=== PATIENT | female | born 1960 | race Caucasian/White ===

== ENCOUNTER 2017-01-25 06:58 | Day surgery (SDC) | payer BC, MEDICAID ==
[2017-01-25] MEDS ORDERED: Lactated Ringers 1,000 ML IV SCH (07:15)
[2017-01-25] MEDS ORDERED: Propofol 200 MG/20 ML SDV IV ONE (08:35)
--- NOTE | 2017-01-25 09:11 | PCM.OPNOTE ---
- General Post-Op/Procedure Note Date of Surgery/Procedure: 01/25/17 Operative Procedure(s): c scope with bx Findings: polyp ascending colon polyp prox transverse colon polyp x3 of rectum Pre Op Diagnosis: screening Post-Op Diagnosis: polyp ascending colon. polyp prox transverse colon. polyp x3 of rectum Anesthesia Technique: MAC Primary Surgeon: Damaso Mcbride Anesthesia Provider: Jones Petersen Pathology: polyp ascending colon polyp prox transverse colon polyp x3 of rectum Complications: None Condition: Good Free Text/Narrative:: see dictation
[2017-01-25 09:29] VITALS: BP 104/66
--- NOTE | 2017-01-25 11:27 | OR ---
DATE OF OPERATION: 01/25/2017 SURGEON: Damaso Mcbride MD PROCEDURE PERFORMED: Screening colonoscopy with cold forceps biopsy. PREOPERATIVE DIAGNOSIS: Colon cancer screening. POSTOPERATIVE DIAGNOSIS: Ascending colon polyp, proximal transverse colon polyp, and rectal polyps x3. INDICATIONS FOR PROCEDURE: This is a 56-year-old white female, who presents for initial screening colonoscopy. She was offered and accepted same. DESCRIPTION OF PROCEDURE: After an excellent IV sedation was administered, digital rectal exam was performed. No marked abnormality was noted. The flexible colonoscope was inserted and advanced without difficulty to the cecum. The prep was excellent. The following findings were noted. Ascending colon, a small polypoid lesion, biopsied with cold biopsy forceps, and sent for permanent. Transverse colon, just distal to the hepatic flexure, a small polyp, biopsied with cold biopsy forceps and sent for permanent. Descending colon, unremarkable. Sigmoid, unremarkable. Rectum, three small polypoid lesions at approximately 10 cm, biopsied and submitted in one container. The colon was deflated, scope was removed. The patient tolerated the procedure well and was taken recovery room in good condition. /[id number] /MODL
== END 2017-01-25 09:48 | disposition home or self-care (01) ==
LOC: FB.SDS 06:58
PROVIDERS: ATTEND Surgery
PROC: 0DBK8ZX Excision of Ascending Colon, Via Natural or Artificial Opening Endoscopic, Diagnostic (ICD-10-PCS; principal; 2017-01-25)
PROC: 0DBP8ZX Excision of Rectum, Via Natural or Artificial Opening Endoscopic, Diagnostic (ICD-10-PCS; 2017-01-25)
PROC: 0DBL8ZX Excision of Transverse Colon, Via Natural or Artificial Opening Endoscopic, Diagnostic (ICD-10-PCS; 2017-01-25)
DX: Z12.11 Encounter for screening for malignant neoplasm of colon (principal); D12.3 Benign neoplasm of transverse colon; D12.2 Benign neoplasm of ascending colon; K62.1 Rectal polyp; E78.5 Hyperlipidemia, unspecified; E11.8 Type 2 diabetes mellitus with unspecified complications; J44.9 Chronic obstructive pulmonary disease, unspecified; Z85.810 Personal history of malignant neoplasm of tongue; F17.210 Nicotine dependence, cigarettes, uncomplicated
CPT/HCPCS: 45380; 82962; 88305; J7120; J2704